=== PATIENT | male | born 1990 | race Caucasian/White ===

== ENCOUNTER 2021-07-21 08:20 | Emergency (ER) | payer OTHER, SELFPAY ==
[2021-07-21 08:35] VITALS: BP 141/93; PULSE 79; RESP 16; TEMP 37; O2SAT 100
--- NOTE | 2021-07-21 09:10 | ED.GENADULT ---
HPI - General Adult General Chief complaint: Ear Stated complaint: Ear Pain Time Seen by Provider: 07/21/21 09:10 Source: patient, RN notes reviewed and old records reviewed Mode of arrival: ambulatory Limitations: no limitations History of Present Illness HPI narrative: 31 year old male who present to express care with complaints of right ear pain which is actually in area in front of ear with palpable tenderness noted. Patient reports that he has seen his dentist and had examination and x-rays and they did order him Augmentin for 5 days and gave him a Medrol dose pack with no resolutions of his symptoms. He reports that he went to [facility] express care yesterday and they cleansed his ears but he continues to have pain to periauricular area. Patient reports that he has not had fevers, chills or sweats, denies any difficulty with swallowing or with his breathing. Related Data Home Medications Medication Instructions Recorded Confirmed methylprednisolone 4 mg tablets in 4 mg PO DAILY 07/21/21 a dose pack Allergies Allergy/AdvReac Type Severity Reaction Status Date / Time No Known Allergies Allergy Verified 07/21/21 10:54 Review of Systems Review of Systems: CONSTITUTIONAL: Denies fever, chills, or sweats. EYES: Denies visual changes, redness, or discharge. ENT: Denies rhinorrhea, congestion, sore throat, positive for otalgia and right periauricular pain. CARDIOVASCULAR: Denies chest pain, palpitations, or edema. RESPIRATORY: Denies cough or dyspnea. GASTROINTESTINAL: Denies abdominal pain, nausea, vomiting, or diarrhea. GENITOURINARY: Denies dysuria or hematuria. SKIN: Denies rash or itching. MUSCULOSKELETAL: Denies back pain, joint pain, or myalgia. NEUROLOGIC: Denies headache, numbness, or weakness. PSYCHIATRIC: Denies anxiety or depression. All systems reviewed & are unremarkable except as noted in HPI and below [facility] Past Medical History Medical History Tonsillitis Social History Social History Smoking status: Never smoker Alcohol intake: current Alcohol use details: rare social Substance use: never Living arrangements: with family Gender identity (if verbalized by the patient): Male Comments At time of signature, agree with nursing past medical, surgical, social and family history. There is no relevant family history pertinent to the presenting complaint Exam Narrative: GENERAL: Well-appearing, well-nourished, and in no acute distress. HEAD: Normocephalic, atraumatic. EYES: PERRLA and EOMI. ENT: Nares clear, no rhinorrhea or epistaxis. Mucous membranes moist.TM's normal with good light reflex, throat red with acute tonsil enlargement on right, uvula with some edema but midline. NECK: Supple. no lymphadenopathy CHEST: Clear to auscultation. No respiratory distress.SAO2 100% on room air HEART: Regular rate and rhythm. No murmur heard. Normal peripheral pulses. ABDOMEN: Soft, nontender, nondistended, normal active bowel sounds. EXTREMITIES: Normal range of motion. No edema. SKIN: Warm, dry, no rash. NEURO: No focal deficits. Alert and oriented x3. Course Course Level of Care: Express Care Visit Vital Signs Vital signs: Vital Signs Temperature 37.0 C 07/21/21 08:35 Pulse Rate 79 07/21/21 08:35 Respiratory Rate 16 07/21/21 08:35 Blood Pressure 141/93 H 07/21/21 08:35 Pulse Oximetry 100 07/21/21 08:35 Temperature 37.0 C 07/21/21 08:35 Pulse Rate 79 07/21/21 08:35 Respiratory Rate 16 07/21/21 08:35 Blood Pressure 141/93 H 07/21/21 08:35 Pulse Oximetry 100 07/21/21 08:35 Medical Decision Making Differential Diagnosis Differential Diagnosis: Tonsillitis, right ear pain, right tonsil swelling, pain to right side of face Medical Records Medical records reviewed: Yes I reviewed the external patient's medical records. Vital Signs Vital Signs: V
== END 2021-07-21 09:47 | disposition home or self-care (01) ==
PROVIDERS: Emergency Provider Registered Nurse
DX: J03.90 Acute tonsillitis, unspecified (principal)
CPT/HCPCS: 87081; 87880; 99213; G0463

== ENCOUNTER 2021-12-19 08:18 | Emergency (ER) | payer OTHER, SELFPAY ==
--- NOTE | 2021-12-19 08:20 | ED.DENTAL ---
HPI - Dental/Oral General Chief complaint: Dental/Oral Stated complaint: Pain on right side of face Time Seen by Provider: 12/19/21 08:20 Source: patient and RN notes reviewed History of Present Illness HPI Narrative: Patient is a 31-year-old male who presents the urgent care with complaints of right-sided jaw pain. Patient states that started approximately 1 year ago and he states at that time he did see a dentist and there was nothing conclusive . Patient denies any radiation of the pain. Denies of any fevers. Patient states that its been worse the last week or so. States that he has been taking Tylenol and ibuprofen with limited relief. No other acute complaints. No acute distress noted. Patient aware of the plan of care. Some parts of this dictation were generated by voice recognition software and may contain typographical and/or grammatical inaccuracies. Related Data Allergies Allergy/AdvReac Type Severity Reaction Status Date / Time No Known Allergies Allergy Verified 12/19/21 08:30 Review of Systems Review of Systems: CONSTITUTIONAL: Denies fever, chills, or sweats. EYES: Denies visual changes, redness, or discharge. ENT: Denies rhinorrhea, congestion, sore throat, or otalgia. Reports of right jaw pain CARDIOVASCULAR: Denies chest pain, palpitations, or edema. RESPIRATORY: Denies cough or dyspnea. GASTROINTESTINAL: Denies abdominal pain, nausea, vomiting, or diarrhea. GENITOURINARY: Denies dysuria or hematuria. SKIN: Denies rash or itching. MUSCULOSKELETAL: Denies back pain, joint pain, or myalgia. NEUROLOGIC: Denies headache, numbness, or weakness. All other systems reviewed are negative, except as documented in HPI. [facility] Past Medical History Medical History Tonsillitis Social History Social History Smoking status: Never smoker Alcohol intake: current Alcohol use details: rare social Substance use: never Gender identity (if verbalized by the patient): Male Comments At the time of my signature, I reviewed and agree with the nursing past medical, surgical, social, and family history. There is no relevant family history pertinent to the patient complaint. Exam Narrative: GENERAL: This is a well-nourished, well-developed patient, in no apparent distress. HEAD: normocephalic, atraumatic. EYES: PERRL. Sclera clear/white. Vision is grossly intact. EARS: External ears normal, auditory canals clear and without drainage, TMs normal without perforation. Hearing grossly intact. NOSE: External nose normal with no obvious nasal discharge, nares without redness, no rhinorrhea. THROAT: Mucous membranes moist, posterior pharynx clear. DENTAL: No notable abscess/erythema or edema to the mucosa. Exacerbated pain with opening/closing of the mouth, to the right jaw. Moderate tenderness to the right TMJ NECK: Neck supple, non-tender without lymphadenopathy SKIN: warm, intact with no suspicious lesions or rash, good texture and turgor. NEURO: awake, alert, and oriented to person, place and time. There were no obvious focal neurologic abnormalities. EXTREMITIES: No clubbing, cyanosis, or edema. Course Course Level of Care: Express Care Visit Vital Signs Vital signs: Vital Signs Temperature 95 F L 12/19/21 08:23 Pulse Rate 68 12/19/21 08:23 Respiratory Rate 20 12/19/21 08:23 Blood Pressure 153/89 H 12/19/21 08:23 Pulse Oximetry 100 12/19/21 08:23 Oxygen Delivery Room Air 12/19/21 08:23 Temperature 95 F L 12/19/21 08:23 Pulse Rate 68 12/19/21 08:23 Respiratory Rate 20 12/19/21 08:23 Blood Pressure 153/89 H 12/19/21 08:23 Pulse Oximetry 100 12/19/21 08:23 Oxygen Delivery Room Air 12/19/21 08:23 Reviewed-patient is informed that they may have pre-hypertension or hypertension based on a blood pressure reading in the department. I recommend the patient call the
[2021-12-19 08:23] VITALS: BP 153/89; PULSE 68; RESP 20; TEMP 35; O2SAT 100
== END 2021-12-19 08:35 | disposition home or self-care (01) ==
PROVIDERS: Emergency Provider Nurse Practitioner Family
DX: M26.601 Right temporomandibular joint disorder, unspecified (principal)
CPT/HCPCS: 99213; G0463